=== PATIENT | male | born 1985 | race Caucasian/White ===

== ENCOUNTER 2016-10-07 20:34 | Emergency (ER) | payer SELFPAY ==
[2016-10-07 20:43] VITALS: BP 117/80; PULSE 50; RESP 16; TEMP 98.6; O2SAT 99
[2016-10-07] MEDS ORDERED: OXYCODONE/APAP 5/325 TAB PO ONE (20:55)
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
[2016-10-07] MEDS ORDERED: OXYCODONE/APAP 5/325MG PREPACK#4 BTL TAKEHOME ONE (21:39)
== END 2016-10-07 21:59 | disposition home or self-care (01) ==
DX: S43.401A Unspecified sprain of right shoulder joint, initial encounter (principal); V18.0XXA Pedal cycle driver injured in noncollision transport accident in nontraffic accident, initial encounter; Y92.410 Unspecified street and highway as the place of occurrence of the external cause; Y99.8 Other external cause status; Y93.89 Activity, other specified
CPT/HCPCS: A4565